=== PATIENT | female | born 1985 | race Caucasian/White ===

== ENCOUNTER 2021-11-12 22:46 | Emergency (ER) | payer OTHER ==
[~2021-11-12] VITALS: Ht 157.5 cm; Wt 68.0 kg
[2021-11-13 00:20] LABS: CREATININE 0.7 mg/dL (0.6-1.3); POTASSIUM 3.8 mmol/L (3.5-5.1)
[2021-11-13 00:24] LABS: HEMATOCRIT 38.3 % (31.2-41.9); MEAN CORPUSCULAR HEMOGLOBIN 24.1 uug (24.7-32.8); MEAN CORPUSCULAR VOLUME 72.6 fL (75.5-95.3); PLATELET COUNT (AUTO) 414 K/uL (179-408)
[2021-11-13 00:25] LABS: BILIRUBIN,DIRECT 0.1 mg/dL (0.0-0.2); BILIRUBIN,TOTAL 0.2 mg/dL (0.2-1.0); TOTAL PROTEIN, SERUM 8.7 g/dL (6.4-8.2)
[2021-11-13 00:26] LABS: *BILIRUBIN,URIN NEGATIVE (NEGATIVE); *BLOOD, URINE 1+ (NEGATIVE); *CLARITY,URINE CLEAR (CLEAR); *COLOR,URINE YELLOW (YELLOW); *KETONES,URINE NEGATIVE (NEGATIVE); *UROBILINOGEN,URINE 0.2 E.U./dl (NORMAL); LEUKOCYTE ESTERASE ,URINE NEGATIVE (NEGATIVE); NITRITE, URINE NEGATIVE (NEGATIVE); PH,URINE 6.5 (5.0-8.0); UGLUCOSE NEGATIVE (NEGATIVE)
[2021-11-13 00:32] LABS: *URINE HCG, QUAL NEGATIVE (NEGATIVE)
[2021-11-13 00:37] LABS: RBC,URINE 0-3 /HPF (0-3); WBC,URINE NONE SEEN /HPF (0-3)
[2021-11-13 00:38] LABS: BACTERIA,URINE NONE SEEN /HPF (NONE SEEN); SQUAMOUS EPITHELIAL CELL,UR FEW /HPF (NONE SEEN)
[2021-11-13] MEDS ORDERED: BISA10SU61 RC (01:00)
[2021-11-13] MEDS ORDERED: MAGNESIUM CITRATE 296 ML BOTTLE PO ONE (01:00)
[2021-11-13] MEDS ORDERED: BISA-79 PO (01:00)
[2021-11-13] MEDS ORDERED: MAGNESIUM CITRATE 296 ML BOTTLE ONE (01:15)
--- NOTE | 2021-11-13 01:26 | NUR ---
Patient discharged to home in stable condition. Written and verbal after care instructions given. Patient verbalizes understanding of instructions. Stressed follow up or return to ER for worsening s/s.
[2021-11-13 01:27] VITALS: BP 120/74
== END 2021-11-13 01:27 | disposition home or self-care (01) ==
LOC: ER 22:51
DX: K59.00 Constipation, unspecified (principal); F17.200 Nicotine dependence, unspecified, uncomplicated
CPT/HCPCS: 36415; 74018; 83690; 84703; 85025